=== PATIENT | male | born 1990 ===

== ENCOUNTER 2016-05-01 08:46 | Emergency (ER) | payer SELFPAY ==
[~2016-05-01] VITALS: Ht 190.5 cm; Wt 88.0 kg
[2016-05-01 08:48] VITALS: BP 145/86; PULSE 107; RESP 14; TEMP 98.1; O2SAT 99
[2016-05-01] MEDS ORDERED: LORA-373 PO (09:07)
--- NOTE | 2016-05-01 09:20 | PD ---
HPI Chief Complaint: Numbness/Tingling Time Seen by Provider: 09:17 Travel History International Travel<30 days: No Contact w/Intl Traveler<30days: No Traveled to known affect area: No History of Present Illness HPI 25-year-old male presents to the emergency Department with complaint of bilateral hand and feet numbness and tingling 2 months. Patient has no other medical complaints. He says he is an alcoholic and drinks daily. He was seen 2 weeks ago in urgent care and was told his symptoms are related to anxiety and was given lorazepam which she has been taking as needed for his symptoms. He doesn't know if the lorazepam is just making him not care about his symptoms or if it is really helping. He says his symptoms subside when he drinks alcohol also. No known aggravating factors. Denies fever, chills, nausea, vomiting. Denies focal deficits or weakness. Denies confusion, disorientation, change in mentation, slurred speech. Denies lightheadedness, dizziness, headache. Denies chest pain, shortness of breath, abdominal pain. Denies neck pain or back pain. Denies encopresis, incontinence, saddle anesthesias. Is here on vacation and was home tomorrow. Has primary care at home. No other modifying factors or associated signs and symptoms. History Social History Alcohol Use: Yes (daily) Allergies-Medications Reported Meds & Prescriptions Reported Meds & Active Scripts Active Reported Lorazepam 0.5 Mg Tab 0.5 Mg PO DAILY PRN Review of Systems Except as stated in HPI: all other systems reviewed are Neg Physical Exam Narrative GENERAL: Well-nourished, well-developed patient, in no acute distress; smells of EtOH, but does not appear intoxicated; appears anxious SKIN: Warm and dry. HEAD: Atraumatic. Normocephalic. No facial droop noted. Tongue midline. EYES: Pupils equal and round at 4 mm with brisk reaction. No scleral icterus. No injection or drainage. PERRLA. EOMI. ENT: Mucosa pink and moist. Airway patent. NECK: Trachea midline. No lymphadenopathy. CARDIOVASCULAR: Regular rate and rhythm. No murmur appreciated. RESPIRATORY: No accessory muscle use. Clear to auscultation. Breath sounds equal bilaterally. GASTROINTESTINAL: Abdomen soft, non-tender, nondistended. Hepatic and splenic margins not palpable. Bowel sounds are active 4 quadrants. MUSCULOSKELETAL: No obvious deformities. No clubbing. No cyanosis. No edema. NEUROLOGICAL: Awake and alert. Oriented 3. No obvious cranial nerve deficits. Motor grossly within normal limits. Normal speech. No ataxia. No mid -line drift. Moves all extremities. 5/5 strength to all extremities. PSYCHIATRIC: Appropriate mood and affect; insight and judgment normal. Data Data Last Documented VS Vital Signs Date Time Temp Pulse Resp B/P Pulse Ox O2 Delivery O2 Flow Rate FiO2 05/01/16 08:48 98.1 107 14 145/86 99 MDM Medical Screen Exam Complete: Yes Emergency Medical Condition: No Differential Diagnosis Anxiety, peripheral neuropathy, medical clearance Narrative Course 25-year-old male with bilateral hand and feet paresthesias 2 months. Patient reports daily alcohol use. He does smell of EtOH but does not appear intoxicated. He does appear anxious and says he is concerned about the continued numbness and tingling. Heart rate on reexamination his approximately 90-100 bpm. Neuro exam is unremarkable. He was seen in urgent care 2 weeks ago , diagnosed with anxiety, and has a prescription for lorazepam with him. I spoke with Dr. Holden, my attending physician, and he agrees the patient is stable for outpatient follow-up. Instructed patient to continue lorazepam as prescribed and to not consume alcohol when he takes lorazepam and he verbalized understanding and agreement with treatment plan. Vital signs are stable and the patient is stable for outpatient follow-up and treatment. The patient has no urgent or emergent medical complaints. There is no emergent or urgent medical need at this time. I instructed the patient to follow up with their primary care provider. A medical screening exam was performed: At the time of evaluation the presenting medical condition was determined not to be of an emergent nature. The patient was given the option of receiving additional care, but declined. Patient was given options for additional community resources from which to obtain care. The Patient Has Been advised to seek medical attention for their presenting complaint. The patient has been advised to return to the ER at any time if an emergent condition develops. Primary Impression: Encounter for medical screening examination Condition: Stable Karolina Giles May 01, 2016 09:19
== END 2016-05-01 10:12 | disposition left against medical advice (07) ==
LOC: NEPB 08:46
DX: R20.2 Paresthesia of skin (principal)
CPT/HCPCS: 99281